=== PATIENT | female | born 1985 | race Caucasian/White ===

== ENCOUNTER 2017-10-14 16:36 | Outpatient (CLI) | payer BC ==
[~2017-10-14] VITALS: Ht 157.5 cm; Wt 122.0 kg
[~2017-10-14 16:36] MED LIST: NOHOMEMEDS
[2017-10-14 17:06] VITALS: BP 142/91
[2017-10-14] MEDS ORDERED: GLYBURIDE5 MG PO (17:13)
[2017-10-14] MEDS ORDERED: GLYBURIDE2.5 MG PO (17:14)
[2017-10-14] MEDS ORDERED: CALCIUM + D SO1 EACH PO (17:14)
[2017-10-14] MEDS ORDERED: PRENATAL TABLE1 EAC3 PO (17:14)
[2017-10-14 17:16] VITALS: BP 137/86
[2017-10-14 17:17] LABS: BASOPHIL (%) 0.3 % (0-1); EOSINOPHIL (%) 0.5 % (0-5); EOSINOPHIL COUNT 0.1 K/uL (0-0.3); HEMATOCRIT 37.5 % (36.0-46.0); HEMOGLOBIN 12.5 G/DL (11.9-15.5); LYMPHOCYTE COUNT 2.4 K/uL (1.0-2.8); MCH 27.6 PG (29.0-34.0); MCHC 33.3 G/DL (30.0-36.0); MCV 82.8 FL (83-99); MONOCYTE (%) 6.8 % (3-12); MONOCYTE COUNT 0.8 K/uL (0-0.8); NEUTROPHIL (%) 70.4 % (45-76); NRBC (%) 0.2 /100 WBC (0-0); PLATELET COUNT 302 K/uL (156-360); RBC DIS.WIDTH-CV 13.4 % (11.8-14.6); RBC DIS.WIDTH-SD 40.3 % (39-53); RED BLOOD COUNT 4.53 M/uL (3.80-5.20); WHITE BLOOD COUNT 11.4 K/uL (4.1-10.2)
[2017-10-14 17:26] VITALS: BP 133/77
[2017-10-14 17:28] LABS: ALBUMIN 3.3 G/DL (3.2-4.8); CHLORIDE 105 MEQ/L (99-109); POTASSIUM 4.3 MEQ/L (3.7-5.4); SODIUM 135 MEQ/L (136-147); TOTAL BILIRUBIN 0.4 MG/DL (0.0-1.0)
[2017-10-14 17:34] LABS: ALKALINE PHOSPHATASE 139 IU/L (3-129); ALT (GPT) 10 IU/L (3-49); AST (GOT) 14 IU/L (2-34); CREATININE 0.5 MG/DL (0.6-1.3); GFR ESTIMATE (CALCULATED) > 59 mL/min/; GLUCOSE 114 mg/dL (70-99); TOTAL PROTEIN 6.2 G/DL (6.4-8.3); UREA NITROGEN (BUN) 9 mg/dL (9-23); URIC ACID 3.3 mg/dL (3.1-9.2)
[2017-10-14 17:36] VITALS: BP 133/79
[2017-10-14 17:46] VITALS: BP 128/69
[2017-10-14 18:30] LABS: UR CREATININE CONCENTRATION 161.4 MG/DL
[2017-10-17] MEDS ORDERED: PRENATAL TABLE1 EAC3 PO (12:48)
[2017-10-17] MEDS ORDERED: MAGNESIUM250 MG PO (12:49)
[2017-10-17] MEDS ORDERED: VIACTIV SOFT C1 EACH PO (12:49)
[2017-10-17] MEDS ORDERED: TUMS500 MG PO (12:50)
[2017-10-17] MEDS ORDERED: DIABETA5 MG PO (12:53)
== END 2017-10-14 18:11 | disposition home or self-care (01) ==
LOC: LDRP-OP 16:36 → 2WEST 16:37 → LDRP-OP 12-06 11:19
PROVIDERS: Advanced Practice Midwife
DX: O14.93 Unspecified pre-eclampsia, third trimester (principal); O24.113 Pre-existing type 2 diabetes mellitus, in pregnancy, third trimester; E11.9 Type 2 diabetes mellitus without complications; O99.343 Other mental disorders complicating pregnancy, third trimester; Z79.84 Long term (current) use of oral hypoglycemic drugs; Z91.19 Patient's noncompliance with other medical treatment and regimen; Z87.891 Personal history of nicotine dependence; Z3A.36 36 weeks gestation of pregnancy; Z68.42 Body mass index [BMI] 45.0-49.9, adult
CPT/HCPCS: 59025; 80053; 82570; 84156; 84550; 85025; 87653; G0378

== ENCOUNTER 2017-10-15 12:06 | Outpatient (CLI) | payer BC ==
[2017-10-15] VITALS (7 sets, daily range): BP systolic 105–138; BP diastolic 54–83
[~2017-10-15 12:06] MED LIST changes: +CALCIUM + D SO1 EACH PO; +GLYBURIDE2.5 MG PO; +GLYBURIDE5 MG PO; +PRENATAL TABLE1 EAC3 PO
[2017-10-17] MEDS ORDERED: PRENATAL TABLE1 EAC3 PO (12:48)
[2017-10-17] MEDS ORDERED: MAGNESIUM250 MG PO (12:49)
[2017-10-17] MEDS ORDERED: VIACTIV SOFT C1 EACH PO (12:49)
[2017-10-17] MEDS ORDERED: TUMS500 MG PO (12:50)
[2017-10-17] MEDS ORDERED: DIABETA5 MG PO (12:53)
== END 2017-10-15 15:35 | disposition home or self-care (01) ==
LOC: LDRP-OP 12:06 → 2WEST 12:07 → LDRP-OP 12:15 → 2WEST 12:15 → LDRP-OP 12-06 18:37
DX: O26.893 Other specified pregnancy related conditions, third trimester (principal); R03.0 Elevated blood-pressure reading, without diagnosis of hypertension; O24.415 Gestational diabetes mellitus in pregnancy, controlled by oral hypoglycemic drugs; Z79.84 Long term (current) use of oral hypoglycemic drugs; O99.213 Obesity complicating pregnancy, third trimester; E66.9 Obesity, unspecified; O99.343 Other mental disorders complicating pregnancy, third trimester; F41.1 Generalized anxiety disorder; F31.81 Bipolar II disorder; Z3A.37 37 weeks gestation of pregnancy
CPT/HCPCS: 59025; G0378

== ENCOUNTER 2017-10-22 08:48 | Inpatient (IN) | payer BC ==
[~2017-10-22] VITALS: Ht 157.5 cm; Wt 121.0 kg
[~2017-10-22 08:48] MED LIST changes: +DIABETA5 MG PO; +MAGNESIUM250 MG PO; +TUMS500 MG PO; +VIACTIV SOFT C1 EACH PO
[2017-10-22 09:58] VITALS: BP 141/80
[2017-10-22 12:46] LABS: AMPHETAMINE NEGATIVE (500 ng/mL); BARBITURATES NEGATIVE (200 ng/mL); BENZODIAZEPINES NEGATIVE (150 ng/mL); BUPRENORPHINE NEGATIVE (10 ng/mL); COCAINE NEGATIVE (150 ng/mL); METHADONE NEGATIVE (200 ng/mL); METHAMPHETAMINE NEGATIVE (500 ng/mL); OPIATES (MORPHINE) NEGATIVE (100 ng/mL); OXYCODONE NEGATIVE (100 ng/mL); PHENCYCLIDINE NEGATIVE (25 ng/mL); PROPOXYPHENE NEGATIVE (300 ng/mL); THC CANNABINOIDS NEGATIVE (50 ng/mL); TRICYCLIC ANTIDEPRESSANTS NEGATIVE (300 ng/mL)
[2017-10-22] MEDS ORDERED: MOTRIN800 MG PO (13:30)
[2017-10-22] MEDS ORDERED: PERCOCET 5/31 TABLET PO (13:30)
[2017-10-23] VITALS (7 sets, daily range): BP systolic 133–170; BP diastolic 80–94
[2017-10-23 07:39] LABS: BASOPHIL (%) 0.3 % (0-1); EOSINOPHIL (%) 0.4 % (0-5); HEMATOCRIT 29.9 % (36.0-46.0); IMMATURE GRANULOCYTE (%) 0.7 % (0.0-0.7); LYMPHOCYTE (%) 17.1 % (15-42); LYMPHOCYTE COUNT 1.9 K/uL (1.0-2.8); MCH 27.6 PG (29.0-34.0); MCHC 32.8 G/DL (30.0-36.0); MCV 84.2 FL (83-99); MONOCYTE (%) 8.9 % (3-12); NEUTROPHIL (%) 72.6 % (45-76); NEUTROPHIL COUNT 8.1 K/uL (1.8-6.4); PLATELET COUNT 238 K/uL (156-360); RBC DIS.WIDTH-CV 13.8 % (11.8-14.6); RBC DIS.WIDTH-SD 42.6 % (39-53); RED BLOOD COUNT 3.55 M/uL (3.80-5.20); WHITE BLOOD COUNT 11.2 K/uL (4.1-10.2)
[2017-10-23 07:41] LABS: HEMOGLOBIN 9.8 G/DL (11.9-15.5)
[2017-10-23 19:50] LABS: HEMATOCRIT 29.8 % (36.0-46.0); HEMOGLOBIN 9.6 G/DL (11.9-15.5); MCHC 32.2 G/DL (30.0-36.0); MCV 83.7 FL (83-99); PLATELET COUNT 257 K/uL (156-360); RBC DIS.WIDTH-CV 13.7 % (11.8-14.6); RBC DIS.WIDTH-SD 41.7 % (39-53); RED BLOOD COUNT 3.56 M/uL (3.80-5.20); WHITE BLOOD COUNT 12.4 K/uL (4.1-10.2)
[2017-10-23 20:00] LABS: ALBUMIN 2.9 G/DL (3.2-4.8); CHLORIDE 106 MEQ/L (99-109); POTASSIUM 3.8 MEQ/L (3.7-5.4); SODIUM 138 MEQ/L (136-147); TOTAL BILIRUBIN 0.4 MG/DL (0.0-1.0)
[2017-10-23 20:05] LABS: ALKALINE PHOSPHATASE 118 IU/L (3-129); ALT (GPT) 10 IU/L (3-49); AST (GOT) 17 IU/L (2-34); CREATININE 0.6 MG/DL (0.6-1.3); GFR ESTIMATE (CALCULATED) > 59 mL/min/; GLUCOSE 170 mg/dL (70-99); TOTAL PROTEIN 5.5 G/DL (6.4-8.3); UREA NITROGEN (BUN) 5 mg/dL (9-23)
[2017-10-25 18:53] VITALS: BP 138/63
[2017-10-25 21:56] VITALS: BP 141/68
[2017-10-25 23:02] VITALS: BP 138/65
[2017-10-26] MEDS ORDERED: LABETALOL HCL200 MG PO (07:48)
== END 2017-10-26 16:29 | disposition home or self-care (01) | DRG 765 ==
LOC: 2WEST 08:48 → 2SOUTH 15:29 → 2WEST 10-26 16:29
PROVIDERS: Obstetrics & Gynecology
PROC: 00HU33Z Insertion of Infusion Device into Spinal Canal, Percutaneous Approach (ICD-10-PCS; principal; 2017-10-22)
PROC: 10D00Z1 Extraction of Products of Conception, Low, Open Approach (ICD-10-PCS; principal; 2017-10-22)
PROC: 3E0R3BZ Introduction of Anesthetic Agent into Spinal Canal, Percutaneous Approach (ICD-10-PCS; principal; 2017-10-22)
DX: O36.63X0 Maternal care for excessive fetal growth, third trimester, not applicable or unspecified (principal); O14.04 Mild to moderate pre-eclampsia, complicating childbirth; O24.425 Gestational diabetes mellitus in childbirth, controlled by oral hypoglycemic drugs; O69.81X0 Labor and delivery complicated by cord around neck, without compression, not applicable or unspecified; O69.2XX0 Labor and delivery complicated by other cord entanglement, with compression, not applicable or unspecified; Z3A.38 38 weeks gestation of pregnancy; Z37.0 Single live birth; O99.214 Obesity complicating childbirth; E66.01 Morbid (severe) obesity due to excess calories; Z68.42 Body mass index [BMI] 45.0-49.9, adult; O99.89 Other specified diseases and conditions complicating pregnancy, childbirth and the puerperium; M41.9 Scoliosis, unspecified; O99.344 Other mental disorders complicating childbirth; F31.9 Bipolar disorder, unspecified; F41.9 Anxiety disorder, unspecified; Z87.891 Personal history of nicotine dependence
CPT/HCPCS: 36415; 80053; 82948; 85025; 85027; 86850; 86900; 86901; J0690; J2274; J3010; J7120